=== PATIENT | male | born 1985 | race Hispanic/Latino ===

== ENCOUNTER 2019-08-26 12:08 | Observation (INO) | payer OTHER ==
[~2019-08-26] VITALS: Ht 175.3 cm; Wt 86.5 kg
[2019-08-26] MEDS ORDERED: MULTCAP PO (12:24)
--- NOTE | 2019-08-26 12:47 | REP ---
CT brain: 08/26/2019. Indication: Drug overdose. Altered mental status. Comparison: None. Technique: Unenhanced axial CT images of the brain were obtained from skull base to vertex. Findings: There is no acute intracranial hemorrhage, acute cortical infarction, mass effect or hydrocephalous. Impression: No acute intracranial process. Electronically Signed by Rodrick Phillips DO 08/26/2019 12:39 P
[2019-08-26 13:16] LABS: VENOUS BASE EXCESS -1.8 (-2.0-2.0); VENOUS HCO3 22.7 MEQ/L (23.0-27.0); VENOUS O2 SATURATION 98.6 % (60.0-80.0); VENOUS PARTIAL PRESSURE CO2 37.7 mmHg (38.0-50.0); VENOUS PARTIAL PRESSURE O2 138.8 mmHg (30.0-50.0); VENOUS PH 7.397 UNITS (7.330-7.430); VENOUS TOTAL CO2 23.8 MEQ/L (24.0-28.0)
[2019-08-26 13:27] LABS: BASO % 0.3 % (0.0-1.0); EOS # 0.3 10^3/uL (0.0-0.5); EOS % 3.4 % (0.0-3.0); HEMATOCRIT 38.6 % (42.0-52.0); HEMOGLOBIN 13.1 g/dl (13.5-17.5); LYMPH # 2.2 10^3/uL (1.5-5.0); LYMPH % 23.9 % (24.0-44.0); MEAN CORPUSCULAR HEMOGLOBIN 32.4 pg (27.0-33.0); MEAN CORPUSCULAR HGB CONC 33.9 g/dl (32.0-36.5); MEAN CORPUSCULAR VOLUME 95.5 fl (80.0-96.0); MONO # 0.6 10^3/uL (0.0-0.8); MONO % 6.9 % (0.0-5.0); NEUTROPHILS # 6.1 10^3/uL (1.5-8.5); NEUTROPHILS % 65.3 % (36.0-66.0); PLATELET COUNT, AUTOMATED 198 10^3/uL (150-450); RED BLOOD COUNT 4.04 10^6/uL (4.30-6.10); WHITE BLOOD COUNT 9.3 10^3/uL (4.0-10.0)
[2019-08-26 14:02] LABS: ACETAMINOPHEN LEVEL < 2.0 UG/ML (10.0-30.0); ALBUMIN 3.7 GM/DL (3.2-5.2); ALT/SGPT 25 U/L (12-78); BILIRUBIN,DIRECT < 0.1 MG/DL (0.0-0.2); BILIRUBIN,TOTAL 0.3 MG/DL (0.2-1.0); BLOOD UREA NITROGEN 11 MG/DL (7-18); CALCIUM LEVEL 8.7 MG/DL (8.5-10.1); CARBON DIOXIDE LEVEL 25 MEQ/L (21-32); CHLORIDE LEVEL 110 MEQ/L (98-107); CPK CREATINE PHOSPHOKINASE 219 U/L (39-308); CREATININE FOR GFR 0.82 MG/DL (0.70-1.30); ETHYL ALCOHOL (ETHANOL) < 0.003 % (0.000-0.010); GLOMERULAR FILTRATION RATE > 60.0 (>60); GLUCOSE, FASTING 108 MG/DL (70-100); POTASSIUM SERUM 4.1 MEQ/L (3.5-5.1); SALICYLATE LEVEL < 1.7 MG/DL (5.0-30.0); SODIUM LEVEL 141 MEQ/L (136-145); TOTAL PROTEIN 6.3 GM/DL (6.4-8.2)
--- NOTE | 2019-08-26 14:07 | REP ---
CHEST, SINGLE VIEW: There is no evidence of acute infiltrate. No pleural effusion is seen. The heart is normal in size. The mediastinal silhouette is unremarkable. The visualized osseous structures are intact. IMPRESSION: No acute pulmonary disease. Electronically Signed by Homero Tran MD 08/27/2019 11:16 A
[2019-08-26 15:25] LABS: AMPHETAMINES LEVEL URINE NEGATIVE (NEGATIVE); BARBITURATES URINE NEGATIVE (NEGATIVE); BENZODIAZEPINES URINE NEGATIVE (NEGATIVE); CANNABINOIDS URINE NEGATIVE (NEGATIVE); COCAINE METABOLITE URINE NEGATIVE (NEGATIVE); METHADONE URINE NEGATIVE (NEGATIVE); OPIATES URINE NEGATIVE (NEGATIVE); PHENCYCLIDINE URINE NEGATIVE (NEGATIVE)
--- NOTE | 2019-08-26 17:58 | REPVR ---
PROCEDURE INFORMATION: Exam: MR Head Without Contrast Exam date and time: 08/26/2019 1:43 PM Clinical history: 33 years old, male; Dizziness and other: Mild left sided weakness; Additional info: Aphasia TECHNIQUE: Imaging protocol: MR of the head without contrast. COMPARISON: CT Head without contrast 08/26/2019 12:29 PM FINDINGS: Brain: Normal. No acute infarct. No hemorrhage. No significant white matter disease. No edema. Ventricles: Normal. No ventriculomegaly. Bones/joints: Unremarkable. Soft tissues: Unremarkable. Sinuses: Normal as visualized. No acute sinusitis. Mastoid air cells: Normal as visualized. No mastoid effusion. Orbits: Unremarkable. IMPRESSION: No acute intracranial abnormality. Electronically signed by: Blaze Mack On 08/26/2019 17:57:56 PM
[2019-08-26] MEDS ORDERED: NS 1,000 ML IV ONE (18:15)
[2019-08-26] MEDS ORDERED: ACET-897 PO (19:07)
[2019-08-26] MEDS ORDERED: ACETAMINOPHEN TAB 650MG DOSE (2X325MG) PO PRN (19:30)
[2019-08-26 19:56] LABS: PROLACTIN 7.6 NG/ML (2.1-17.7)
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
--- NOTE | 2019-08-26 21:30 | ECGEPIP ---
[facility] - ED Test Date: 2019-08-26 Pat Name: ROSEMARY VENCES Department: Room: - Gender: Male Ophthalmic Asst: KG : 1985 Requested By: Tita Gasca Order Number: [id number] Reading MD: Tita Gasca Measurements Intervals [place] Rate: 60 P: 32 TN: 167 QRS: 30 QRSD: 94 T: 23 QT: 379 QTc: 380 Interpretive Statements SINUS RHYTHM NO PRIOR Electronically Signed on 08-26-2019 21:30:24 EDT by Tita Gasca
[2019-08-26 22:00] VITALS: BP 115/68
[2019-08-26 22:51] VITALS: BP_SYST 111; BP_SYST 113; BP_DIAS 62; BP_DIAS 70
[2019-08-27 01:54] VITALS: BP_SYST 105; BP_DIAS 64; BP_DIAS 68
[2019-08-27 02:02] VITALS: BP 105/64
[2019-08-27 06:06] VITALS: BP_SYST 107; BP_SYST 110; BP_DIAS 64; BP_DIAS 66
[2019-08-27 06:54] LABS: HEMATOCRIT 39.9 % (42.0-52.0); HEMOGLOBIN 13.5 g/dl (13.5-17.5); MEAN CORPUSCULAR HEMOGLOBIN 32.6 pg (27.0-33.0); MEAN CORPUSCULAR HGB CONC 33.8 g/dl (32.0-36.5); MEAN CORPUSCULAR VOLUME 96.4 fl (80.0-96.0); PLATELET COUNT, AUTOMATED 196 10^3/uL (150-450); RED BLOOD COUNT 4.14 10^6/uL (4.30-6.10); WHITE BLOOD COUNT 7.7 10^3/uL (4.0-10.0)
[2019-08-27 07:31] LABS: BLOOD UREA NITROGEN 14 MG/DL (7-18); CALCIUM LEVEL 8.6 MG/DL (8.5-10.1); CARBON DIOXIDE LEVEL 26 MEQ/L (21-32); CHLORIDE LEVEL 109 MEQ/L (98-107); CREATININE FOR GFR 0.84 MG/DL (0.70-1.30); GLOMERULAR FILTRATION RATE > 60.0 (>60); GLUCOSE, FASTING 92 MG/DL (70-100); POTASSIUM SERUM 4.1 MEQ/L (3.5-5.1); SODIUM LEVEL 140 MEQ/L (136-145)
[2019-08-27 10:00] VITALS: BP 128/64
[2019-08-27 14:00] VITALS: BP 105/63
--- NOTE | 2019-08-28 10:30 | CR ---
DATE OF CONSULTATION: 08/27/2019 REFERRING PHYSICIAN: Dr. Maureen Medina REASON FOR CONSULTATION: Passing out spell. HISTORY OF PRESENT ILLNESS: Zachariah Jefferson is a 33-year-old man, who presented to [facility] after a possible passing out spell on around 4 p.m. The patient is active-duty soldier. He states that he was working in a vehicle and stood up and bumped his head and did not think much of it. On when he was working and typing on a computer he did not feel well. He felt dizziness. He was trying to talk to somebody in the other room and felt that he had trouble speaking. Next thing he remembers is that he woke up and his head was on the keyboard. He had leach of keyboard on his face. He thinks that he passed out for 10 minutes. He was sitting in a room but it was open space and people were passing and walking by. Nobody saw anything usual. They thought that he was sleeping on his desk. The patient states that he passed out. There was no tongue biting, urinary incontinence, or shaking like a seizure. He denied any headache, neck or back pain. His picked him up on evening and he decided to sleep it off. Thursday morning he woke up and felt slightly worse. He felt dizzy. He dressed and went to work and he appeared off to his colleagues. He was not making sense. He was sent to [facility] from where he was sent to [facility] by ambulance. The patient states that he has mild daily headaches some weeks and other weeks he has no problems. He is used to his headaches and they do not bother. PAST MEDICAL HISTORY: LASIK eye surgery. HOME MEDICATIONS: Tylenol as needed. ALLERGIES: None. REVIEW OF SYSTEMS: All systems were reviewed and found to be noncontributory, except as mentioned in history of present illness. SOCIAL HISTORY: He quit smoking. He drinks alcohol socially. He denies illicit drugs. FAMILY HISTORY: Significant for diabetes, hypertension, and stroke. PHYSICAL EXAMINATION: Temperature 98, pulse 65, respiratory 18, blood pressure 128/64, 99% saturation on room air. Heart: Regular rate and rhythm. Lungs: Clear to auscultation. Abdomen: Soft, nontender, nondistended. No pedal edema. No musculoskeletal abnormalities. No rash. No signs of meningeal irritation. The patient is awake, alert, oriented to place, person, and time. Recent and distant memory is intact. Normal speech, comprehension, and repetition. Extraoral muscles are intact. No visual field deficit. No facial weakness. No nystagmus. Tongue, uvula are midline. 5/5 strength in all four extremities. Deep tendon flexes are 2+ throughout. Normal sensation throughout. Gait is normal. There is no ataxia, dysmetria, and Romberg testing is negative. DIAGNOSTIC STUDIES: MRI brain, CT scan of head, telemetry monitoring, CBC, metabolic profile, toxicology screen, and blood alcohol level were all within normal limits. Prolactin level was 7.6 and TSH was 3.3. ASSESSMENT: 1. Passing out spell versus episode of falling asleep. 2. Episodic tension headaches, not intractable. 3. Dizziness and lightheadedness. PLAN: 1. Electroencephalogram (EEG) on outpatient basis. 2. Followup with our office in 2-4 weeks after hospital discharge.
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
== END 2019-08-27 17:10 | disposition home or self-care (01) ==
LOC: M ED 12:08 → EDBD 12:08 → M ED INP 12:09 → M MSPAV 21:35
PROVIDERS: ADMIT Internal Medicine; ATTEND Internal Medicine
DX: R55 Syncope and collapse (principal); G44.219 Episodic tension-type headache, not intractable; R00.1 Bradycardia, unspecified; R42 Dizziness and giddiness; Z87.820 Personal history of traumatic brain injury
CPT/HCPCS: 36415; 70450; 70551; 71045; 80048; 80076; 80307; 82550; 82803; 84146; 84443; 85025; 85027; 93005; 93041; 96360; 96361; 99285; G0480

== ENCOUNTER 2019-09-06 09:26 | Emergency (ER) | payer OTHER ==
[~2019-09-06] VITALS: Ht 175.3 cm; Wt 81.8 kg
[~2019-09-06 09:26] MED LIST: ACET-897 PO; MULTCAP PO
--- NOTE | 2019-09-06 10:14 | REP ---
Portable chest x-ray: Single view. History: Syncope near-syncope. Comparison study: August 26, 2019. Findings: The lungs are symmetrically aerated and clear. Pleural angles are sharp. Heart size is normal. EKG monitoring electrodes overlie the chest. Pulmonary vasculature is not increased. No bony abnormalities seen. Impression: Negative portable chest x-ray. Electronically Signed by Dylan Al MD 09/06/2019 10:05 A
[2019-09-06 10:15] LABS: BASO % 0.3 % (0.0-1.0); EOS # 0.1 10^3/uL (0.0-0.5); EOS % 1.3 % (0.0-3.0); HEMATOCRIT 43.2 % (42.0-52.0); HEMOGLOBIN 14.2 g/dl (13.5-17.5); LYMPH % 26.1 % (24.0-44.0); MEAN CORPUSCULAR HEMOGLOBIN 31.8 pg (27.0-33.0); MEAN CORPUSCULAR HGB CONC 32.9 g/dl (32.0-36.5); MEAN CORPUSCULAR VOLUME 96.9 fl (80.0-96.0); MONO # 0.5 10^3/uL (0.0-0.8); MONO % 6.4 % (0.0-5.0); NEUTROPHILS % 65.6 % (36.0-66.0); PLATELET COUNT, AUTOMATED 218 10^3/uL (150-450); RED BLOOD COUNT 4.46 10^6/uL (4.30-6.10); WHITE BLOOD COUNT 7.6 10^3/uL (4.0-10.0)
[2019-09-06] MEDS ORDERED: NS 1,000 ML IV ONE (10:15)
--- NOTE | 2019-09-06 10:16 | REP ---
CT brain: 09/06/2019. Indication: Syncope. Comparison: 08/26/2019. Findings: There is no acute intracranial hemorrhage, acute cortical infarction, mass effect, hydrocephalus or acute calvarial fracture. Impression: No acute intracranial process. Electronically Signed by Rodrick Phillips DO 09/06/2019 10:07 A
[2019-09-06 10:58] LABS: BLOOD UREA NITROGEN 12 MG/DL (7-18); CALCIUM LEVEL 9.3 MG/DL (8.5-10.1); CARBON DIOXIDE LEVEL 27 MEQ/L (21-32); CHLORIDE LEVEL 109 MEQ/L (98-107); CK-MB VALUE MASS < 1.0 NG/ML (<3.6); CPK CREATINE PHOSPHOKINASE 180 U/L (39-308); CREATININE FOR GFR 0.94 MG/DL (0.70-1.30); FREE T4 0.87 NG/DL (0.76-1.46); GLOMERULAR FILTRATION RATE > 60.0 (>60); GLUCOSE, FASTING 79 MG/DL (70-100); MAGNESIUM LEVEL 2.3 MG/DL (1.8-2.4); MB/CK RELATIVE INDEX 0.56 (< OR =4); POTASSIUM SERUM 4.6 MEQ/L (3.5-5.1); SODIUM LEVEL 142 MEQ/L (136-145); TROPONIN I < 0.02 NG/ML (< 0.10)
[2019-09-06 12:00] VITALS: BP 103/59
--- NOTE | 2019-09-07 05:36 | ECGEPIP ---
[facility] - ED Test Date: 2019-09-06 Pat Name: ROSEMARY VENCES Department: Room: - Gender: Male Customer Service Voice: wilson : 1985 Requested By: Tita Gasca Order Number: [id number] Reading MD: Junaid Avila Measurements Intervals [place] Rate: 60 P: 26 VA: 172 QRS: 22 QRSD: 85 T: 15 QT: 394 QTc: 394 Interpretive Statements SINUS RHYTHM BENIGN EARLY REPOLARIZATION SIMILAR TO 08/26/19 Electronically Signed on 09-07-2019 5:36:10 EST by Junaid Avila
== END 2019-09-06 12:18 | disposition home or self-care (01) ==
LOC: EDBD 09:26 → M ED 09:26
DX: R55 Syncope and collapse (principal); F17.218 Nicotine dependence, cigarettes, with other nicotine-induced disorders; F43.10 Post-traumatic stress disorder, unspecified; Z87.820 Personal history of traumatic brain injury